=== PATIENT | female | born 1980 | race Caucasian/White ===

== ENCOUNTER → 2018-11-03 17:33 | Outpatient (CLI) | payer MEDICARE, OTHER, SELFPAY ==
[2018-11-03 18:22] LABS: Basophils % 0.6 % (0.1-2.0); Eosinophils % 0.1 % (0.1-12.0); Hematocrit 43.2 % (37.0-47.0); Hemoglobin 14.2 g/dL (12.2-16.2); Lymphocytes # 1.1 K/mm3 (0.7-4.5); Lymphocytes % 23.1 % (10-50); Mean Corpuscular HGB Conc 32.9 g/dL (31.8-35.4); Mean Corpuscular Hemoglobin 28.3 pg (27.0-31.2); Mean Corpuscular Volume 85.9 fl (81-99); Mean Platelet Volume 7.7 fl (7.4-10.4); Monocytes # 0.2 K/mm3 (0.1-1.0); Monocytes % 4.5 % (1.7-9.3); Neutrophils # 3.4 K/mm3 (1.8-7.8); Neutrophils % 71.6 % (37.0-80.0); Platelet Count 289 K/mm3 (142-424); Red Blood Count 5.03 M/mm3 (4.20-5.40); Red Cell Distribution Width 13.1 % (11.5-17.5); White Blood Count 4.8 K/mm3 (4.8-10.8)
[2018-11-03 19:15] LABS: Alanine Aminotransferase 26 U/L (12-78); Albumin/Globulin Ratio 1.3 (1.1-1.8); Alkaline Phosphatase 125 U/L (46-116); Anion Gap 15.6 mEq/L (5-15); Aspartate Amino Transferase 11 U/L (15-37); Bilirubin,Total 0.3 mg/dL (0.2-1.0); Blood Urea Nitrogen 12 mg/dL (7-18); Calcium 8.8 mg/dL (8.5-10.1); Carbon Dioxide 23 mmol/L (21.0-32.0); Chloride 109 mmol/L (98-107); Chol/HDL Ratio 5.9 (1-3.5); Cholesterol 236 mg/dL (140-200); Creatinine,Serum 0.97 mg/dL (0.55-1.02); Estimated Glomerular Filt Rate 64 ml/min (>60); GFR (African American) 78 ML/MIN (>60); Glucose 126 mg/dL (74-106); HDL Cholesterol 40 mg/dL (29-89); LDL Cholesterol 172 mg/dL (0-130); Potassium 3.6 mmoL/L (3.5-5.1); Sodium 144 mmol/L (136-145); Thyroid Stimulating Hormone 0.02 uIU/ml (0.358-3.740); Triglycerides 122 mg/dL (30-200); VLDL Cholesterol 24 mg/dL (0-40)
[2018-11-05 12:45] LABS: Vitamin D 25 Hydroxy 24.7 ng/mL (30.0-100.0)
== END ==
PROVIDERS: Visit Provider Nurse Practitioner Family
DX: K64.9 Unspecified hemorrhoids (principal); I10 Essential (primary) hypertension
CPT/HCPCS: 80053; 80061; 82652; 84436; 84443; 85025

== ENCOUNTER → 2020-05-03 12:41 | Outpatient (CLI) | payer MEDICARE, OTHER, SELFPAY ==
--- NOTE | 2020-05-03 12:41 | MM_ITS ---
PROCEDURE: MM DIG SCREENING MAMM BI W/CAD Digital Breast Tomosynthesis Included CLINICAL INDICATION: screening xmg There is no personal or family history of breast cancer. COMPARISON: This is a baseline screening exam, patient without complaints TECHNIQUE: Standard CC and MLO images and 3D Tomosynthesis was obtained. R2 CAD reviewed. FINDINGS: Mild to moderate scattered fibroglandular densities are seen throughout both breasts and the findings are bilateral and symmetrical. There is no suspicious lesion in either breast and no suspicious microcalcifications. IMPRESSION: Fibrofatty parenchyma with no suspicious lesions seen BI-RAD Category: 1 Negative FOLLOW-UP: 1YR 1 Year Follow-up (A letter has been sent to the patient regarding results of the study.) Dictated by: Dr. Bipin Garcia MD 05/05/2020 15:40 Dr. Bipin Garcia MD in [place] 05/05/2020 15:40
== END ==
PROVIDERS: PCP Emergency Medicine; Visit Provider Nurse Practitioner Obstetrics & Gynecology
DX: Z12.31 Encounter for screening mammogram for malignant neoplasm of breast (principal)
CPT/HCPCS: 77063; 77067

== ENCOUNTER 2020-06-11 14:46 | Emergency (ER) | payer MEDICARE, OTHER, SELFPAY ==
--- NOTE | 2020-06-11 14:39 | ECG_ITS ---
APPROVED REPORT Exam: Resting ECG HR:72 bpm ECG Measurements Heart Rate 72 AXES SD 120 P 59 QRSd 74 QRS 49 QT 400 T 40 QTc 438 Conclusion Normal sinus rhythm Normal ECG Electronically signed by : Severino Carvajal, 06/11/2020 18:54:02
[2020-06-11 14:48] VITALS: BP 98/69; PULSE 74; RESP 17; TEMP 36.8; O2SAT 98; BMI 23.0
--- NOTE | 2020-06-11 14:51 | XR_ITS ---
PROCEDURE: XR CHEST 2V CLINICAL HISTORY: chest pain COMPARISON: CR CXR CHEST(2 VIEWS-NOT PORTABLE) from 04/08/2016 FINDINGS: The cardiomediastinal silhouette and pulmonary vascularity are within normal limits. The lungs are clear without infiltrates, suspicious nodules, or pleural effusions. No acute bony abnormalities. IMPRESSION: No acute findings. Dictated by: Dr. Bipin Garcia MD 06/11/2020 16:59 Dr. Bipin Garcia MD in [place] 06/11/2020 16:59
--- NOTE | 2020-06-11 14:59 | HMH.EDCP ---
ED Disposition Clinical Impression: Atypical chest pain Disposition: Home, Self-Care Condition on Discharge: Good Referrals: Brandon Hargrove MD [Primary Care Provider] - - Critical Care Critical Care Time: No Attestation: On 06/11/20, the high probability of a clinically significant, sudden or life threatening deterioration of the following system(s) required my full and direct attention, intervention and personal management. The time I documented below is in addition to time spent performing reported procedures but includes the following listed in this critical care notation. Medical Decision Making - Medical Records Medical records reviewed: Yes: I reviewed the patient's medical records. - Bull Inquiry Pt receiving controlled substance: No Vital Signs: 06/11/20 14:48 Temperature 98.2 F Temperature Source Oral Pulse Rate [Right Radial] 74 Respiratory Rate 17 Blood Pressure [Right Arm] 98/69 L Blood Pressure Mean [Right Arm] 78 02 Sat by Pulse Oximetry 98 Oxygen Delivery Method Room Air - Lab Data Lab results reviewed: Yes: I reviewed the patient's lab results. Lab Results 06/11/20 14:48: WBC 4.5 L, RBC 4.64, Hgb 13.2, Hct 42.7, MCV 92.0, MCH 28.4, MCHC 30.8 L, RDW 14.5, Plt Count 260, MPV 7.3 L, Neut % (Auto) 68.7, Lymph % (Auto) 22.2, Whitley % (Auto) 7.4, Eos % (Auto) 1.0, Baso % (Auto) 0.6, Neut # (Auto) 3.1, Lymph # (Auto) 1.0, Whitley # (Auto) 0.3, Eos # (Auto) 0.1, Baso # (Auto) 0.0 06/11/20 14:48: Sodium 140, Potassium 4.0, Chloride 107, Carbon Dioxide 25, Anion Gap 12.0, BUN 14, Creatinine 0.70, Estimated Creat Clear 99, Estimated GFR 93, Est GFR ( Amer) 112, Glucose 100, Calcium 9.1, Total Bilirubin 0.4, AST 46 H, ALT 36, Alkaline Phosphatase 129 H, Troponin I < 0.01, Total Protein 7.0, Albumin 4.3, Globulin 2.7, Albumin/Globulin Ratio 1.6 06/11/20 14:48: D-Dimer 0.44 Result diagrams: 06/11/20 14:48 06/11/20 14:48 Orders (Tests/Meds): ORDERS Category Date Time Status XR chest 2V Stat Exams 06/11/20 14:51 Taken Troponin I Q3H Lab 06/11/20 18:00 Ordered Troponin I Q3H Lab 06/11/20 21:00 Ordered - Radiology Data #1 Image(s): Chest Image Reviewed: Yes I reviewed the patient's radiology image Preliminary Findings: Normal/NAD - ECG Data Tracing #1 ECG normal with no acute: arrhythmias, ischemia, conduction abnormalities, chamber hypertrophy ([id number]) Normal Sinus Rhythm: Yes Chest Pain HPI - General Chief Complaint: Chest Pain Stated Complaint: chest pain Time Seen by Provider: 06/11/20 14:50 Mode of Arrival: Wheelchair Source of Information: Patient Limitations: No Limitations Description of Symptoms (Recalled from ER Triage Doc. by RN): pt presents to ed with c/o chest pain that began approx 20 minutes ago. - History of Present Illness HPI narrative: This is a 40-year-old female that presents with acute onset chest pain began approximate 1 hour prior to arrival. Pain is sharp intermittent and with movement . She denies that the pain radiates. She denies movement of her limbs because the pain but whenever she walks around it causes her pain. She denies any diaphoresis nausea or vomiting or shortness of breath. She also denies any orthopnea. Pain is sharp and rated at 7 out of 10 in intensity. No pain at rest. No family history of early onset coronary disease. - Related Data Home Medications Medication Instructions Recorded Confirmed levothyroxine 125 mcg capsule 125 mcg PO DAILY 07/06/18 02/23/20 zonisamide 100 mg capsule 100 mg PO DAILY 07/06/18 02/23/20 oxycodone 5 mg tablet PO 01/04/20 02/23/20 Allergies Allergy/AdvReac Type Severity Reaction Status Date / Time No Known Allergies Allergy Verified 06/11/20 14:51 [facility] History - Hepatitis A Screen Drug use history?: No High risk sexual behaviors?: No History of sexually transmitted infection?: No Currently employed?: No Childcare worker?: No Do you have indo
[2020-06-11 15:05] LABS: Basophils % 0.6 % (0.1-2.0); Eosinophils # 0.1 K/mm3 (0.0-0.4); Hematocrit 42.7 % (37.0-47.0); Hemoglobin 13.2 g/dL (12.2-16.2); Lymphocytes % 22.2 % (10-50); Mean Corpuscular HGB Conc 30.8 g/dL (31.8-35.4); Mean Corpuscular Hemoglobin 28.4 pg (27.0-31.2); Mean Platelet Volume 7.3 fl (7.4-10.4); Monocytes # 0.3 K/mm3 (0.1-1.0); Monocytes % 7.4 % (1.7-9.3); Neutrophils # 3.1 K/mm3 (1.8-7.8); Neutrophils % 68.7 % (37.0-80.0); Platelet Count 260 K/mm3 (142-424); Red Blood Count 4.64 M/mm3 (4.20-5.40); Red Cell Distribution Width 14.5 % (11.5-17.5); White Blood Count 4.5 K/mm3 (4.8-10.8)
[2020-06-11 15:07] LABS: Chloride 107 mmol/L (98-107); Sodium 140 mmol/L (136-145)
[2020-06-11 15:10] LABS: Alanine Aminotransferase 36 U/L (12-78); Albumin Level 4.3 g/dl (3.5-5.0); Albumin/Globulin Ratio 1.6 (1.1-1.8); Alkaline Phosphatase 129 U/L (38-126); Aspartate Amino Transferase 46 U/L (14-36); Bilirubin,Total 0.4 mg/dl (0.2-1.3); Blood Urea Nitrogen 14 mg/dl (7-17); Carbon Dioxide 25 mmol/L (22.0-30.0); Creatinine Clearance Estimated 99 mL/min (50-200); Estimated Glomerular Filt Rate 93 ml/min (>60); GFR (African American) 112 ML/MIN (>60); Globulin 2.7 g/dL (1.3-3.2)
[2020-06-11 15:11] LABS: Calcium 9.1 mg/dl (8.4-10.2); Glucose 100 mg/dl (74-100)
[2020-06-11 15:23] LABS: Troponin I < 0.01 ng/ml (0.00-0.034)
[2020-06-11 15:28] LABS: D-Dimer 0.44 ug/mL (0.15-8.0)
[2020-06-11 16:11] VITALS: BP 145/74; PULSE 74; RESP 18; TEMP 36.6; O2SAT 98
== END 2020-06-11 16:13 | disposition home or self-care (01) ==
PROVIDERS: Emergency Provider Emergency Medicine; PCP Emergency Medicine
DX: R07.89 Other chest pain (principal); G40.909 Epilepsy, unspecified, not intractable, without status epilepticus; E03.9 Hypothyroidism, unspecified; Z79.899 Other long term (current) drug therapy; Z90.710 Acquired absence of both cervix and uterus; Z87.891 Personal history of nicotine dependence
CPT/HCPCS: 71046; 80053; 84484; 85025; 85378; 93005; 96372; 96374; 99283

== ENCOUNTER → 2021-07-20 14:03 | Outpatient (CLI) | payer MEDICARE, OTHER, SELFPAY | PROVIDERS: Visit Provider Nurse Practitioner | DX: Z20.822 Contact with and (suspected) exposure to COVID-19 (principal) | CPT/HCPCS: C9803; U0003; U0005 ==

== ENCOUNTER 2022-10-08 14:20 | Emergency (ER) | payer MEDICARE, OTHER, SELFPAY ==
--- NOTE | 2022-10-08 14:20 | ECG_ITS ---
APPROVED REPORT Exam: Resting ECG HR:93 bpm ECG Measurements Heart Rate 93 AXES CA 119 P 78 QRSd 85 QRS 61 QT 321 T 59 QTc 372 Conclusion SINUS RHYTHM WITH SHORT CA INTERVAL MODERATE ST DEPRESSION [0.05+ mV ST DEPRESSION] ABNORMAL ECG UNCONFIRMED REPORT Electronically signed by : Severino Carvajal MD 10/08/2022 17:36:05
[2022-10-08 14:23] VITALS: BP 131/73; PULSE 93; RESP 17; TEMP 37.1; O2SAT 98; BMI 26.4
--- NOTE | 2022-10-08 14:43 | XR_ITS ---
FINAL REPORT TECHNIQUE: Chest PA & Lateral CLINICAL HISTORY: chest pain COMPARISON: May 2020 FINDINGS: 2 views of the chest were performed. The heart size is normal. The mediastinum is within normal limits. There is no acute cardiopulmonary process. There are no pleural effusions. There is no pneumothorax. The bony thorax appears intact. IMPRESSION: No acute cardiopulmonary process. Reviewed, Interpreted and Dictated by Kenneth Garcia MD Transcribed by Joe Patel Authenticated and [facility]
[2022-10-08 14:53] LABS: Chloride 109 mmol/L (98-107); Sodium 140 mmol/L (136-145)
[2022-10-08 14:54] LABS: Potassium 3.9 mmoL/L (3.5-5.1)
[2022-10-08 14:56] LABS: Anion Gap 11.9 mEq/L (5-15); Blood Urea Nitrogen 15 mg/dl (7-17); Carbon Dioxide 23 mmol/L (22.0-30.0); Creatinine Clearance Estimated 87 mL/min (50-200); Estimated Glomerular Filt Rate 69 ml/min (>60); GFR (African American) 83 ML/MIN (>60)
[2022-10-08 14:57] LABS: Calcium 8.4 mg/dl (8.4-10.2); Glucose 118 mg/dl (74-100)
[2022-10-08 14:59] LABS: Basophils % 0.4 % (0.1-2.0); Eosinophils % 0.1 % (0.1-12.0); Hematocrit 44.6 % (37.0-47.0); Hemoglobin 13.9 g/dL (12.2-16.2); Lymphocytes # 0.5 K/mm3 (0.7-4.5); Lymphocytes % 5.3 % (10-50); Mean Corpuscular HGB Conc 31.1 g/dL (31.8-35.4); Mean Corpuscular Hemoglobin 29.3 pg (27.0-31.2); Mean Corpuscular Volume 94.4 fl (81-99); Mean Platelet Volume 7.6 fl (7.4-10.4); Monocytes # 0.3 K/mm3 (0.1-1.0); Monocytes % 2.7 % (1.7-9.3); Neutrophils # 8.5 K/mm3 (1.8-7.8); Neutrophils % 91.6 % (37.0-80.0); Platelet Count 212 K/mm3 (142-424); Red Blood Count 4.73 M/mm3 (4.20-5.40); Red Cell Distribution Width 14.4 % (11.5-17.5); White Blood Count 9.3 K/mm3 (4.8-10.8)
[2022-10-08 15:00] LABS: MANUAL DIFFERENTIAL MANUAL DIFFERENTIAL (MANUAL DIFF)
[2022-10-08 15:21] LABS: Lymphocytes % 5 % (10-50); Monocytes % 4 % (2-9); Neutrophils % 91 % (42-76); Total Cells Counted 100; Troponin I < 0.01 ng/ml (0.00-0.034)
[2022-10-08 15:22] LABS: Stomatocytes 1+
[2022-10-08 15:23] LABS: Platelet Estimate Normal; Poikilocytosis 1+
--- NOTE | 2022-10-08 15:26 | HMH.EDGENADL ---
Discharge Plan Disposition Patient Disposition: Home, Self-Care Condition: Good Chief Complaint: Chest Pain Prescriptions Prescriptions: No Action oxycodone 5 mg tablet PO levothyroxine 125 mcg capsule 125 mcg PO DAILY zonisamide [Zonegran] 100 mg capsule 100 mg PO DAILY levothyroxine [Euthyrox] 125 mcg tablet 125 mcg PO estradiol [Estrace] 0.01 % (0.1 mg/gram) cream 1 appful VAGINAL DAILY Qty: 42.5 5RF Rx Instructions: 1/2 gram twice weekly Referrals Follow up/Referrals: Brandon Hargrove MD [Primary Care Provider] - See instructions Activity Restrictions/Add. Instructions Additional Instructions/Restrictions: Motrin/Tylenol as needed for aches and pains. Follow-up PCP in 1 to 2 days Clinical Impressions Clinical Impression: Musculoskeletal chest pain Instructions Patient Instructions: DI for Atypical Chest Pain Discharge ED Provider: Ash Daley General Adult HPI General Chief complaint: Chest Pain Stated complaint: CP Time Seen by Provider: 10/08/22 14:20 Mode of Arrival: Ambulatory Source of Information: Patient Limitations: No Limitations Description of Symptoms (Recalled from ER Triage Doc. by RN): pt to ED with right sided chest pain that radiates to her right shoulder x 3 days. pt reports recently doing some heavy lifting over the weekend. on assessment the pain hurts worse when raising her right arm and the pain is reproducable when palpating on the patient right chest and shoulder blade. History of Present Illness HPI narrative: 42yo F presents to the ER secondary to right-sided chest pain and back pain. Pain worse with use of her right upper extremity. Patient is right-hand dominant. Denies any injury or fall. Denies previous episode similar. Denies cardiac history. no shortness of breath, radiation of symptoms, nausea or vomiting Related Data Home Medications Medication Instructions Recorded Confirmed levothyroxine 125 mcg capsule 125 mcg PO DAILY 07/06/18 04/03/21 zonisamide 100 mg capsule 100 mg PO DAILY 07/06/18 04/03/21 (Zonegran) oxycodone 5 mg tablet PO 01/04/20 04/03/21 levothyroxine 125 mcg tablet 125 mcg PO 04/03/21 04/03/21 (Euthyrox) Previous Rx's Medication Instructions Recorded estradiol 0.01% (0.1 mg/gram) 1 appful vaginal DAILY #42.5 grams 04/03/21 vaginal cream (Estrace) Allergies Allergy/AdvReac Type Severity Reaction Status Date / Time No Known Allergies Allergy Verified 04/03/21 11:59 [facility] Disclaimer: The information contained in this section may have been updated after the patient was seen, as this information can be updated by other users. Social History Smoking Status: Never smoker second hand exposure: No alcohol intake: never substance use type: denies use current occupational status: disabled Travel in the last 8 weeks: None housing: house ROS Obtained: Yes Systems reviewed as appropriate & no additional complaints except as documented Physical Exam General General appearance: alert and in no apparent distress Head Head exam: atraumatic Eye Eye exam: Present normal appearance Chest Chest inspection: Present normal inspection Respiratory Respiratory exam: Present normal lung sounds bilaterally Cardiovascular Cardiovascular exam: Present regular rate and normal rhythm Abdominal Exam Abdominal exam: Present soft; Absent distention or tenderness Neurological Exam Neurological exam: Present alert, oriented X3 and CN II-XII intact Psychiatric Psychiatric exam: Present normal affect Skin Skin exam: Present warm and dry Medical Decision Making Medical Records Medical records reviewed: Yes I reviewed the patient's medical records. Bull Inquiry Pt receiving controlled substance: No Vital Signs: 10/08/22 14:23 Temperature 98.7 F Temperature Source Oral Pulse Rate [Left Radial] 93 H Respiratory Rat
[2022-10-08 15:40] VITALS: BP 109/54; PULSE 90; RESP 18; TEMP 36.7; O2SAT 97
== END 2022-10-08 15:40 | disposition home or self-care (01) ==
PROVIDERS: Emergency Provider Family Medicine; PCP Emergency Medicine
DX: R07.89 Other chest pain (principal)
CPT/HCPCS: 71046; 80048; 84484; 85007; 85025; 93005; 99284; 99285

== ENCOUNTER 2022-10-10 20:29 | Emergency (ER) | payer MEDICARE, OTHER, SELFPAY ==
[2022-10-10 20:39] VITALS: BP 142/88; PULSE 121; RESP 16; TEMP 36.4; O2SAT 99; BMI 26.5
--- NOTE | 2022-10-10 20:43 | PC.NURSE ---
unable to collect blood cultures prior to antibiotic collection. IV in right AC quit drawing blood and patient refuses to be stuck again.
[2022-10-10 21:13] LABS: Basophils % 0.4 % (0.1-2.0); Eosinophils % 0.1 % (0.1-12.0); Hematocrit 42.6 % (37.0-47.0); Lymphocytes # 0.5 K/mm3 (0.7-4.5); Lymphocytes % 5.6 % (10-50); Mean Corpuscular HGB Conc 32.8 g/dL (31.8-35.4); Mean Corpuscular Hemoglobin 30.2 pg (27.0-31.2); Mean Corpuscular Volume 92.2 fl (81-99); Mean Platelet Volume 8.5 fl (7.4-10.4); Monocytes # 0.2 K/mm3 (0.1-1.0); Neutrophils # 8.2 K/mm3 (1.8-7.8); Neutrophils % 91.9 % (37.0-80.0); Platelet Count 193 K/mm3 (142-424); Red Blood Count 4.62 M/mm3 (4.20-5.40); Red Cell Distribution Width 14.8 % (11.5-17.5)
[2022-10-10 21:16] LABS: MANUAL DIFFERENTIAL MANUAL DIFFERENTIAL (MANUAL DIFF)
[2022-10-10 21:17] LABS: Chloride 102 mmol/L (98-107); Potassium 3.5 mmoL/L (3.5-5.1); Sodium 133 mmol/L (136-145)
[2022-10-10 21:20] LABS: Anion Gap 13.5 mEq/L (5-15); Blood Urea Nitrogen 18 mg/dl (7-17); Calcium 8.4 mg/dl (8.4-10.2); Carbon Dioxide 21 mmol/L (22.0-30.0); Creatinine Clearance Estimated 72 mL/min (50-200); Estimated Glomerular Filt Rate 54 ml/min (>60); GFR (African American) 66 ML/MIN (>60); Glucose 119 mg/dl (74-100)
--- NOTE | 2022-10-10 21:20 | HMH.EDGENADL ---
Discharge Plan Disposition Patient Disposition: Home, Self-Care Condition: Fair Prescriptions Prescriptions: New clindamycin HCl 300 mg capsule 300 mg PO TID 7 Days Qty: 21 0RF No Action levothyroxine 125 mcg capsule 125 mcg PO DAILY zonisamide [Zonegran] 100 mg capsule 100 mg PO DAILY levothyroxine [Euthyrox] 125 mcg tablet 125 mcg PO DAILY acetaminophen-codeine 300-30 mg tablet 1 tab PO Q4H PRN (Reason: pain) 3 Days Qty: 18 0RF estradiol [Estrace] 0.01 % (0.1 mg/gram) cream 1 appful VAGINAL DAILY Rx Instructions: 1/2 gram twice weekly methylprednisolone [Methylpred DP] 4 mg tablets,dose pack See Rx Instructions PO PER PKG DIR Rx Instructions: PO PER PKG DIR Referrals Follow up/Referrals: Brandon Hargrove MD [Primary Care Provider] - See instructions Clinical Impressions Clinical Impression: Cellulitis of left thigh, Cellulitis of right thigh Instructions Patient Instructions: Cellulitis Print Language Print Language: [place] Discharge ED Provider: Rickey Pham General Adult HPI General Chief complaint: Skin/Abscess/Foreign Body Stated complaint: redness swelling LT leg Time Seen by Provider: 10/10/22 21:24 Mode of Arrival: Family Vehicle Source of Information: Patient Limitations: No Limitations Description of Symptoms (Recalled from ER Triage Doc. by RN): 42 yo female presents with chief complaint of multiple ingrown hairs on ble as well as what she describes as circumferential edema and warmth. Patient states she was seen by pcp earlier and was prescribed a steroid dose pack. Afebrile. Ambulates easily. Identifies small bump to anterior right groin and left posterior thigh. History of Present Illness HPI narrative: Patient presents to the emergency department with redness, swelling and pain to her left thigh which is started 2 days ago and is now affecting her right medial thigh. The patient denies any fever, chills, cough, congestion. She denies any trauma to the legs. Denies any significant pain with ambulation. Related Data Home Medications Medication Instructions Recorded Confirmed levothyroxine 125 mcg capsule 125 mcg PO DAILY thyroid 07/06/18 10/10/22 zonisamide 100 mg capsule 100 mg PO DAILY seizures 07/06/18 10/10/22 (Zonegran) levothyroxine 125 mcg tablet 125 mcg PO DAILY thyroid 04/03/21 10/10/22 (Euthyrox) estradiol 0.01% (0.1 mg/gram) 1 appful vaginal DAILY estrogen 10/10/22 10/10/22 vaginal cream (Estrace) methylprednisolone 4 mg tablets in See Rx Instructions PO PER PKG DIR 10/10/22 10/10/22 a dose pack (Methylpred DP) steroid Previous Rx's Medication Instructions Recorded acetaminophen 300 mg-codeine 30 mg 1 tab PO Q4H PRN pain 3 days #18 10/10/22 tablet tabs clindamycin HCl 300 mg capsule 300 mg PO TID 7 days #21 caps 10/10/22 Allergies Allergy/AdvReac Type Severity Reaction Status Date / Time No Known Allergies Allergy Verified 10/10/22 13:21 [facility] Disclaimer: The information contained in this section may have been updated after the patient was seen, as this information can be updated by other users. Social History Smoking Status: Former smoker second hand exposure: No alcohol intake: never substance use type: denies use current occupational status: disabled Travel in the last 8 weeks: None housing: house ROS Obtained: Yes All systems reviewed & no additional complaints except as documented Integumentary/Breasts Skin/Breast: Reports rash Physical Exam General General appearance: alert and in no apparent distress Head Head exam: atraumatic and normocephalic Eye Eye exam: Present normal appearance, PERRL and EOMI Respiratory Respiratory exam: Present normal lung sounds bilaterally Cardiovascular Cardiovascular exam: Present regular rate, normal rhythm and normal heart sounds Abdominal Exam Abdominal
[2022-10-10 21:21] LABS: Lactic Acid 1.7 mmol/L (0.7-2.1)
[2022-10-10 21:32] VITALS: BP 142/70; PULSE 89; RESP 19; TEMP 36.7; O2SAT 98
[2022-10-10 21:35] LABS: Lymphocytes % 8 % (10-50); Neutrophils % 92 % (42-76); Total Cells Counted 100
[2022-10-10 21:36] LABS: Platelet Estimate Normal; RBC Morphology Normal
[2022-10-10 21:47] LABS: C-Reactive Protein 414.6 mg/L (0-4)
[2022-10-10 21:59] LABS: Procalcitonin 15.9 ng/mL (0.0-2.0)
[2022-10-10 22:11] LABS: Erythrocyte Sedimentation Rate 60 mm/hr (0-20)
== END 2022-10-10 21:35 | disposition home or self-care (01) ==
PROVIDERS: Emergency Provider Emergency Medicine; PCP Emergency Medicine
DX: L03.116 Cellulitis of left lower limb (principal); L03.115 Cellulitis of right lower limb
CPT/HCPCS: 80048; 83605; 84145; 85007; 85025; 85651; 86140; 96374; 99284; 99285

== ENCOUNTER 2022-10-15 12:59 | Emergency (ER) | payer MEDICARE, OTHER, SELFPAY ==
[2022-10-15 13:10] VITALS: BP 130/79; PULSE 83; RESP 20; TEMP 36.5; O2SAT 96; BMI 26.2
--- NOTE | 2022-10-15 13:51 | EXP.UTC ---
Discharge Plan Disposition Patient Disposition: Home, Self-Care Condition: Fair Prescriptions Prescriptions: New clindamycin HCl 300 mg capsule 300 mg PO TID 5 Days Qty: 15 0RF No Action levothyroxine 125 mcg capsule 125 mcg PO DAILY zonisamide [Zonegran] 100 mg capsule 100 mg PO DAILY levothyroxine [Euthyrox] 125 mcg tablet 125 mcg PO DAILY clindamycin HCl 300 mg capsule 300 mg PO TID Referrals Follow up/Referrals: Brandon Hargrove MD [Primary Care Provider] - See instructions Clinical Impressions Clinical Impression: Cellulitis Discharge ED Provider: Omega Templeton [facility] HPI <Brandi Menezes DEMETRIO Caicedo - Last Filed: 10/15/22 20:05> General Chief complaint: PAIN Stated complaint: LT ankle inflammation w/pain no accident Mode of Arrival: Ambulatory Source of Information: Patient Limitations: No Limitations Time Seen by Provider: 10/15/22 13:51 Description of Symptoms (Recalled from Triage Doc. by RN): left ankle is swollen. Pt was seen in ER a few days ago for bilateral thigh cellulitis. HEENT Symptoms (Recalled from RN notes): No Resp Symptoms (Recalled from RN notes): No Skin Symptoms (Recalled from RN notes): No MS Symptoms (Recalled from RN notes): Yes Functional Status (Recalled from RN notes): n/a History of Present Illness Provider Complaint: Patient states that she was seen and treated in the ED a few days ago for cellulititis States that that is getting better States she has been cleaning alot and not sure if she may have done something to her ankle or not but she has been having some swelling in ankle area and bottom of lower leg and hurts when she puts weight on it States that her family was worried about blood clot Denies known injury Related Data Home Medications Medication Instructions Recorded Confirmed levothyroxine 125 mcg capsule 125 mcg PO DAILY thyroid 07/06/18 10/15/22 zonisamide 100 mg capsule 100 mg PO DAILY seizures 07/06/18 10/15/22 (Zonegran) levothyroxine 125 mcg tablet 125 mcg PO DAILY thyroid 04/03/21 10/15/22 (Euthyrox) clindamycin HCl 300 mg capsule 300 mg PO TID abx 10/15/22 10/15/22 Previous Rx's Medication Instructions Recorded clindamycin HCl 300 mg capsule 300 mg PO TID 5 days #15 caps 10/15/22 Allergies Allergy/AdvReac Type Severity Reaction Status Date / Time No Known Allergies Allergy Verified 10/15/22 13:33 Worker's Comp Is this a Worker's Comp case?: No PFSH <Brandi Caicedo APRN - Last Filed: 10/15/22 20:05> PFS Disclaimer: The information contained in this section may have been updated after the patient was seen, as this information can be updated by other users. Social History Smoking Status: Former smoker second hand exposure: No alcohol intake: never substance use type: denies use current occupational status: disabled Travel in the last 8 weeks: None housing: house <Brandi Caicedo APRN - Last Filed: 10/15/22 20:05> ROS Obtained: Yes All systems reviewed & no additional complaints except as documented and Yes Systems reviewed as appropriate & no additional complaints except as documented ENT Ears, Nose, Mouth, and Throat: Reports system reviewed and no additional complaints, except as documented and Reports as per HPI Cardiovascular Cardiovascular: Reports system reviewed and no additional complaints, except as documented and Reports as per HPI Respiratory Respiratory: Reports system reviewed and no additional complaints, except as documented and Reports as per HPI Gastrointestinal Gastrointestingal: Reports system reviewed and no additional complaints, except as documented and as per HPI Musculoskeletal Musculoskeletal: Reports system reviewed and no additional complaints, except as documented and Reports as per HPI Comments: Pain and swelling in left lower leg and ankle with swelling in ankle Physical Exam <Brandi Caicedo APRN - Last Fi
--- NOTE | 2022-10-15 14:07 | XR_ITS ---
FINAL REPORT CLINICAL HISTORY: swelling FINDINGS: AP, oblique, and lateral views of the left ankle were obtained. There is no prior exam for comparison. There is no fracture or dislocation. The ankle mortise is intact. Soft tissues are normal. IMPRESSION: No acute osseous abnormality of the left ankle. Reviewed, Interpreted and Dictated by Obdulia Lundberg MD Transcribed by Joe Patel Authenticated and [facility]
--- NOTE | 2022-10-15 14:07 | CA_ITS ---
FINAL REPORT CLINICAL HISTORY: ankle swelling/ pain/ Left thigh rash, dry splotchy skin peeling with blisters-on vancamyacin wtihout resolve. FINDINGS: DUPLEX VENOUS SONOGRAPHY OF THE LEFT LOWER EXTREMITY Multiple transverse and longitudinal scans were performed of the femoropopliteal deep venous system, with augmentation and compression maneuvers. FINDINGS: Normal phasic flow was noted in the visualized deep venous system. No intraluminal increased echogenicity is noted to suggest thrombus. There is normal compression and augmentation of the venous structures. No abnormal venous collaterals are seen. IMPRESSION: No evidence of deep venous thrombosis of the left lower extremity. Reviewed, Interpreted and Dictated by Obdulia Lundberg MD Transcribed by Joe Patel Authenticated and [facility]
[2022-10-15 14:57] VITALS: BP 132/54; PULSE 67; RESP 18; TEMP 36.4; O2SAT 97; BMI 26.2
[2022-10-15 15:43] VITALS: BP 128/75; PULSE 75; RESP 18; TEMP 36.5; O2SAT 98
== END 2022-10-15 15:43 | disposition home or self-care (01) ==
LOC: UTC 14:46 → ER 14:49
PROVIDERS: Emergency Provider Emergency Medicine; PCP Emergency Medicine
DX: L03.116 Cellulitis of left lower limb (principal)
CPT/HCPCS: 73610; 93971; 99284

== ENCOUNTER 2022-10-23 16:24 | Emergency (ER) | payer MEDICARE, OTHER, SELFPAY ==
[2022-10-23 16:45] VITALS: BP 131/71; PULSE 82; RESP 20; TEMP 36.8; O2SAT 99; BMI 34.7
--- NOTE | 2022-10-23 16:52 | EXP.UTC ---
Discharge Plan Disposition Patient Disposition: Home, Self-Care Condition: Good Prescriptions Prescriptions: New cyclobenzaprine 10 mg Tablet 10 mg PO BID PRN (Reason: Muscle Spasm) Qty: 20 0RF ibuprofen [IBU] 800 mg tablet 800 mg PO Q8HP PRN (Reason: Moderate Pain) Qty: 30 0RF No Action levothyroxine 125 mcg capsule 125 mcg PO DAILY zonisamide [Zonegran] 100 mg capsule 100 mg PO DAILY levothyroxine [Euthyrox] 125 mcg tablet 125 mcg PO DAILY clindamycin HCl 300 mg capsule 300 mg PO TID clindamycin HCl 300 mg capsule 300 mg PO TID 5 Days Qty: 15 0RF Referrals Follow up/Referrals: Brandon Hargrove MD [Primary Care Provider] - See instructions Activity Restrictions/Add. Instructions Additional Instructions/Restrictions: Rest the extremity, Take ibuprofen for pain. I sent in a prescription to your pharmacy. Follow up with as scheduled. Follow up with your regular doctor. GO TO THE ER FOR ANY WORSENING SYMPTOMS Clinical Impressions Clinical Impression: Pain in right shoulder Instructions Patient Instructions: Shoulder Tendinopathy, DI for Shoulder Pain Discharge ED Provider: Peterson Aleman [facility] General Stated complaint: pAIN IN R SHOULD AND ARM FOR 2WKS Mode of Arrival: Ambulatory Source of Information: Patient Limitations: No Limitations Time Seen by Provider: 10/23/22 16:52 HEENT Symptoms (Recalled from RN notes): No Resp Symptoms (Recalled from RN notes): No Skin Symptoms (Recalled from RN notes): No MS Symptoms (Recalled from RN notes): Yes Functional Status (Recalled from RN notes): n/a History of Present Illness Provider Complaint: She c/o right shoulder pain for the last 2 weeks. States that it starts mid back and shoots down her right arm. She denies any injury. Related Data Home Medications Medication Instructions Recorded Confirmed levothyroxine 125 mcg capsule 125 mcg PO DAILY thyroid 07/06/18 10/15/22 zonisamide 100 mg capsule 100 mg PO DAILY seizures 07/06/18 10/15/22 (Zonegran) levothyroxine 125 mcg tablet 125 mcg PO DAILY thyroid 04/03/21 10/15/22 (Euthyrox) clindamycin HCl 300 mg capsule 300 mg PO TID abx 10/15/22 10/15/22 Previous Rx's Medication Instructions Recorded clindamycin HCl 300 mg capsule 300 mg PO TID 5 days #15 caps 10/15/22 cyclobenzaprine 10 mg tablet 10 mg PO BID PRN Muscle Spasm #20 10/23/22 tabs ibuprofen 800 mg tablet (IBU) 800 mg PO Q8HP PRN Moderate Pain 10/23/22 #30 tabs Allergies Allergy/AdvReac Type Severity Reaction Status Date / Time No Known Allergies Allergy Verified 10/23/22 16:52 Worker's Comp Is this a Worker's Comp case?: No PFSH [facility] Disclaimer: The information contained in this section may have been updated after the patient was seen, as this information can be updated by other users. Social History Smoking Status: Former smoker second hand exposure: No alcohol intake: never substance use type: denies use current occupational status: disabled Travel in the last 8 weeks: None housing: house ROS Obtained: Yes All systems reviewed & no additional complaints except as documented Constitutional Constitutional: Denies chills and Denies fever(s) Eyes Eyes: Denies eye discharge ENT Ears, Nose, Mouth, and Throat: Denies dizziness, Denies otalgia and Denies sore throat Cardiovascular Cardiovascular: Denies chest pain Respiratory Respiratory: Denies shortness of breath, Denies chest congestion, Denies cough, Denies stridor and Denies wheezing Gastrointestinal Gastrointestingal: Denies nausea or vomiting Musculoskeletal Musculoskeletal: Reports as per HPI Integumentary/Breasts Skin/Breast: Denies rash Neurologic Neurologic: Denies dizziness and Denies paresthesias Allergic/Immunologic Allergic/Immunologic: Denies wheezing Physical Exam General General appearance: alert and in no appare
[2022-10-23 17:27] VITALS: BP 131/71; PULSE 82; RESP 20; TEMP 36.8; O2SAT 99
== END 2022-10-23 17:27 | disposition home or self-care (01) ==
PROVIDERS: Emergency Provider Nurse Practitioner Family; PCP Emergency Medicine
DX: M25.511 Pain in right shoulder (principal); M79.601 Pain in right arm; Z87.891 Personal history of nicotine dependence
CPT/HCPCS: 99212; 99214; G0463

== ENCOUNTER 2023-07-19 18:56 | Emergency (ER) | payer MEDICARE, OTHER, SELFPAY ==
[2023-07-19 19:40] VITALS: BP 126/72; PULSE 75; RESP 20; TEMP 36.7; O2SAT 97; BMI 32.5
--- NOTE | 2023-07-19 19:44 | EXP.UTC ---
Discharge Plan Disposition Patient Disposition: Home, Self-Care Condition: Good Prescriptions Prescriptions: New benzonatate [benzonatate] 100 mg capsule 100 mg PO TIDP PRN (Reason: Cough) Qty: 30 0RF azithromycin [Zithromax] 250 mg tablet 250 mg PO UD DOSE PK Qty: 6 0RF Rx Instructions: Take two (2) tablets today, then one (1) tablet days #2 thru #5 ondansetron 4 mg Tablet,Disintegrating 4 mg PO Q8H PRN (Reason: Nausea) Qty: 12 0RF No Action levothyroxine 125 mcg capsule 125 mcg PO DAILY zonisamide [Zonegran] 100 mg capsule 100 mg PO DAILY levothyroxine [Euthyrox] 125 mcg tablet 125 mcg PO DAILY clindamycin HCl 300 mg capsule 300 mg PO TID clindamycin HCl 300 mg capsule 300 mg PO TID 5 Days Qty: 15 0RF cyclobenzaprine 10 mg Tablet 10 mg PO BID PRN (Reason: Muscle Spasm) Qty: 20 0RF ibuprofen [IBU] 800 mg tablet 800 mg PO Q8HP PRN (Reason: Moderate Pain) Qty: 30 0RF Referrals Follow up/Referrals: Madhuri Elmore PA [Primary Care Provider] - See instructions Activity Restrictions/Add. Instructions Additional Instructions/Restrictions: Drink plenty of fluids. Take tylenol or ibuprofen for pain or fever. Take the medications as directed. Follow up with your regular doctor. GO TO THE ER FOR ANY WORSENING SYMPTOMS Clinical Impressions Clinical Impression: Acute viral syndrome, Sinusitis, Exposure to 2019 novel coronavirus Instructions Patient Instructions: DI for Sinusitis, Coronavirus Disease 2019, Preventing the Spread of Coronavirus Discharge Instructions Discharge ED Provider: Peterson Aleman [facility] General Stated complaint: [email or web address] mireles Time Seen by Provider: 07/19/23 19:44 History of Present Illness Provider Complaint: She states that for the past 3 days she has had sinus congestion, cough, and headache. Related Data Home Medications Medication Instructions Recorded Confirmed levothyroxine 125 mcg capsule 125 mcg PO DAILY thyroid 07/06/18 10/15/22 zonisamide 100 mg capsule 100 mg PO DAILY seizures 07/06/18 10/15/22 (Zonegran) levothyroxine 125 mcg tablet 125 mcg PO DAILY thyroid 04/03/21 10/15/22 (Euthyrox) clindamycin HCl 300 mg capsule 300 mg PO TID abx 10/15/22 10/15/22 Previous Rx's Medication Instructions Recorded clindamycin HCl 300 mg capsule 300 mg PO TID 5 days #15 caps 10/15/22 cyclobenzaprine 10 mg tablet 10 mg PO BID PRN Muscle Spasm #20 10/23/22 tabs ibuprofen 800 mg tablet (IBU) 800 mg PO Q8HP PRN Moderate Pain 10/23/22 #30 tabs azithromycin 250 mg tablet 250 mg PO UD DOSE PK #6 tabs 07/19/23 (Zithromax) benzonatate 100 mg capsule 100 mg PO TIDP PRN Cough #30 caps 07/19/23 ondansetron 4 mg disintegrating 4 mg PO Q8H PRN Nausea #12 tabs 07/19/23 tablet Allergies Allergy/AdvReac Type Severity Reaction Status Date / Time No Known Allergies Allergy Verified 10/23/22 16:52 [facility] Disclaimer: The information contained in this section may have been updated after the patient was seen, as this information can be updated by other users. Medical History (Updated 07/19/23 @ 20:03 by Peterson Aleman APRN) Cancer Seizures Social History Smoking Status: Former smoker second hand exposure: No alcohol intake: never substance use type: denies use current occupational status: disabled Travel in the last 8 weeks: None housing: house ROS Obtained: Yes All systems reviewed & no additional complaints except as documented Constitutional Constitutional: Reports poor appetite Eyes Eyes: Reports system reviewed and no additional complaints, except as documented ENT Ears, Nose, Mouth, and Throat: Reports as per HPI Cardiovascular Cardiovascular: Reports system reviewed and no additional complaints, except as documented and Denies chest pain Respiratory Respiratory: Denies shortness of breath, Denies chest congestion, Reports cough, Denies stridor and Denies wheezing Gastrointestinal Gastrointestingal: Reports system reviewed and no additional complaints, except as documented; Denies abdominal pain, diarrhea or vomiting Musculoskeletal Musculoskeletal: Reports system reviewed and no additional complaints, except as documented and Denies arthralgias Integumentary/Breasts Skin/Breast: Reports system reviewed and no additional complaints, except as documented and Denies rash Neurologic Neurologic: Denies paresthesias Allergic/Immunologic Allergic/Immunologic: Denies wheezing Physical Exam General General appearance: alert and in no apparent distress Eye Eye exam: Present normal appearance, PERRL and EOMI ENT ENT exam: Present mucous membranes moist and normal external ear exam Expanded ENT Exam External ear exam: Present normal external inspection TM/Canal exam: Bilateral TM: erythema and bulging Nose exam: Absent sinus tenderness Nasal speculum exam: Bilateral: normal Mouth exam: Present normal external inspection; Absent drooling Teeth exam: Present normal inspection Throat exam: Present tonsillar erythema and tonsillomegaly Neck Neck exam: Present normal inspection, full ROM and trachea midline; Absent tenderness, lymphadenopathy or thyromegaly Chest Chest inspection: Present normal inspection and symmetric chest wall rise; Absent tenderness or rash Respiratory Respiratory exam: Present normal lung sounds bilaterally; Absent respiratory distress, wheezes, stridor or accessory muscle use Cardiovascular Cardiovascular exam: Present regular rate, normal rhythm and normal heart sounds Abdominal Exam Abdominal exam: Present soft; Absent distention, tenderness, guarding, rebound or rigidity Extremities Exam Extremities exam: Present normal inspection, full ROM and normal capillary refill; Absent tenderness or calf tenderness Back Exam Back exam: Present normal inspection and full ROM; Absent tenderness Neurological Exam Neurological exam: Present alert and oriented X3 Psychiatric Psychiatric exam: Present normal affect and normal mood Skin Skin exam: Present warm, dry, intact and normal color Lymphatic Lymphatic Findings: no adenopathy Medical Decision Making Medical Records Medical records reviewed: No I reviewed the patient's medical records. Bull Inquiry Pt receiving controlled substance: No Lab Data Lab results reviewed: Yes I reviewed the patient's lab results.
[2023-07-19 20:04] VITALS: BP 126/72; PULSE 75; RESP 20; TEMP 36.7; O2SAT 97
== END 2023-07-19 20:06 | disposition home or self-care (01) ==
PROVIDERS: Emergency Provider Nurse Practitioner Family; PCP Physician Assistant
DX: J01.90 Acute sinusitis, unspecified (principal); R51.9 Headache, unspecified; R09.81 Nasal congestion; R05.9 Cough, unspecified; Z20.822 Contact with and (suspected) exposure to COVID-19; Z87.891 Personal history of nicotine dependence
CPT/HCPCS: 87635; 99212; 99214; G0463

== ENCOUNTER 2024-03-26 14:59 | Outpatient (CLI) | payer MEDICARE, OTHER, SELFPAY ==
[2024-03-26 19:35] LABS: Hemoglobin A1C 5.8 % (4.0-6.0)
[2024-03-26 19:51] LABS: Basophils % 0.6 % (0.1-2.0); Eosinophils % 0.1 % (0.1-12.0); Hematocrit 44.2 % (37.0-47.0); Hemoglobin 14.2 g/dL (12.2-16.2); Lymphocytes # 0.6 K/mm3 (0.7-4.5); Lymphocytes % 20.7 % (10-50); Mean Corpuscular HGB Conc 32.2 g/dL (31.8-35.4); Mean Corpuscular Hemoglobin 30.8 pg (27.0-31.2); Mean Corpuscular Volume 95.7 fl (81-99); Mean Platelet Volume 9.1 fl (7.4-10.4); Monocytes # 0.2 K/mm3 (0.1-1.0); Neutrophils # 2.2 K/mm3 (1.8-7.8); Neutrophils % 72.7 % (37.0-80.0); Platelet Count 253 K/mm3 (142-424); Red Blood Count 4.62 M/mm3 (4.20-5.40); Red Cell Distribution Width 14.9 % (11.5-17.5)
[2024-03-26 20:01] LABS: Alanine Aminotransferase 54 U/L (12-78); Albumin/Globulin Ratio 1.5 (1.1-1.8); Alkaline Phosphatase 109 U/L (38-126); Anion Gap 10.9 mEq/L (5-15); Aspartate Amino Transferase 47 U/L (14-36); Bilirubin,Total 0.5 mg/dl (0.2-1.3); Blood Urea Nitrogen 10 mg/dl (7-17); Calcium 8.8 mg/dl (8.4-10.2); Carbon Dioxide 20 mmol/L (22.0-30.0); Chloride 114 mmol/L (98-107); Chol/HDL Ratio 5.6 (1-3.5); Cholesterol 229 mg/dl (140-200); Estimated Glomerular Filt Rate 91 ml/min (>60); GFR (African American) 111 ML/MIN (>60); Globulin 2.7 g/dL (1.3-3.2); Glucose 94 mg/dl (74-100); HDL Cholesterol 41 mg/dl (40-60); Potassium 3.9 mmoL/L (3.5-5.1); Sodium 141 mmol/L (136-145); Total Protein,Serum 6.7 g/dl (6.3-8.2); Triglycerides 183 mg/dl (30-150); VLDL Cholesterol 37 mg/dL (0-40)
[2024-03-26 20:09] LABS: 25-OH Vitamin D, Total 20.7 ng/mL (30-100)
[2024-03-26 20:29] LABS: Direct LDL Cholesterol 160.95 mg/dL (100-129)
[2024-03-26 20:34] LABS: Thyroid Stimulating Hormone < 0.02 uIU/mL (0.465-4.68)
[2024-03-27 10:22] LABS: T4 (Thyroxine) 14.8 ug/dl (5.53-11.0)
== END 2024-03-26 23:59 | disposition home or self-care (01) ==
LOC: LAB.DROPOF 03-27 15:00
PROVIDERS: PCP Nurse Practitioner Family; Visit Provider Nurse Practitioner Family
DX: E55.9 Vitamin D deficiency, unspecified (principal); C73 Malignant neoplasm of thyroid gland; E78.5 Hyperlipidemia, unspecified; R73.03 Prediabetes
CPT/HCPCS: 80050; 80053; 80061; 82306; 83036; 84436; 84443; 85025